=== PATIENT | female | born 1995 | race Caucasian/White ===

== ENCOUNTER 2022-04-16 10:47 | Emergency (ER) | payer MEDICAID ==
[~2022-04-16] VITALS: Ht 144.8 cm; Wt 47.6 kg
[2022-04-16 10:52] VITALS: BP_SYST 120
[2022-04-16] MEDS ORDERED: MED4 PO (10:58)
[2022-04-16] MEDS ORDERED: BENZ100C92 PO (10:58)
--- NOTE | 2022-04-16 10:59 | NUR ---
BODY ACHES STARTED SAT NIGHT, WOKE UP FRIDAY SICK WITH COUGH, CONGESTION, SNEEZING WITH FEVER, HOME TESTED COVID NEGATIVE.
--- NOTE | 2022-04-16 11:01 | NUR ---
Patient given written and verbal discharge instructions and verbalizes understanding. ER MD discussed with patient the results and treatment provided. Patient in stable condition. ID arm band removed. Rx of given. Patient educated on pain management and to follow up with PMD. Pain Scale . Opportunity for questions provided and answered. Medication side effect fact sheet provided.
== END 2022-04-16 11:02 | disposition home or self-care (01) ==
LOC: SED 10:47
DX: B34.9 Viral infection, unspecified (principal); R05.9 Cough, unspecified; R50.9 Fever, unspecified; J02.9 Acute pharyngitis, unspecified; Z79.899 Other long term (current) drug therapy
CPT/HCPCS: 99283

== ENCOUNTER 2022-07-09 16:38 | Emergency (ER) | payer MEDICAID ==
[~2022-07-09] VITALS: Ht 144.8 cm; Wt 47.6 kg
[~2022-07-09 16:38] MED LIST: BENZ100C92 PO; MED4 PO
[2022-07-09 16:45] VITALS: BP_SYST 126
--- NOTE | 2022-07-09 16:51 | NUR ---
Patient triaged and placed in waiting room. C/O syncope episode at work. LOC witnessed by coworkers Also C/O chest pain and SOB X2 weeks. VSS and patient appears in no acute distress at this time. Accompanied by self, awaiting available bed, and MD notified of need for MSE.
--- NOTE | 2022-07-09 19:18 | NUR ---
Patient left without being seen.
== END 2022-07-09 19:18 | disposition left against medical advice (07) ==
LOC: SED 16:38
DX: R07.9 Chest pain, unspecified (principal); R06.02 Shortness of breath; R55 Syncope and collapse; Z53.21 Procedure and treatment not carried out due to patient leaving prior to being seen by health care provider
CPT/HCPCS: 99281

== ENCOUNTER 2023-05-21 21:26 | Emergency (ER) | payer BC, MEDICAID ==
[~2023-05-21] VITALS: Ht 144.8 cm; Wt 49.9 kg
[2023-05-21 22:05] VITALS: BP_SYST 110; PULSE 73; RESP 16; TEMP 97.5; O2SAT 99
[2023-05-21 22:35] LABS: BILIRUBIN,URINE NEGATIVE (NEGATIVE); BLOOD, URINE 1+ (NEGATIVE); CLARITY/URINE CLEAR (CLEAR); GLUCOSE,URINE NEGATIVE (NEGATIVE); KETONES,URINE NEGATIVE (NEGATIVE); LEUKOCYTE ESTERASE ,URINE NEGATIVE (NEGATIVE); NITRITE, URINE NEGATIVE (NEGATIVE); PROTEIN URINE NEGATIVE (NEGATIVE); UROBILINOGEN,URINE 0.2 (0.2-1.0)
[2023-05-21 22:41] LABS: COLOR,URINE STRAW (YELLOW)
[2023-05-21 22:46] LABS: BACTERIA,URINE RARE /HPF (None Seen); RBC,URINE 0-3 /HPF (0-3); WBC,URINE NONE SEEN /HPF (0-3)
[2023-05-22 00:25] VITALS: BP_SYST 110; PULSE 73; RESP 16; TEMP 97.5; O2SAT 99
== END 2023-05-22 00:25 | disposition home or self-care (01) ==
LOC: SED 21:26
DX: K59.00 Constipation, unspecified (principal); R10.9 Unspecified abdominal pain; M54.50 Low back pain, unspecified; Z79.899 Other long term (current) drug therapy
CPT/HCPCS: 81000; 81001; 81015; 81025; 99284